=== PATIENT | male | born 1955 | race Caucasian/White ===

== ENCOUNTER → 2018-07-11 | Outpatient (CLI) | payer MEDICARE ==
[2014-11-29 12:05] VITALS: BP 138/53
[~2018-07-11] MED LIST: ALBU2.5V14 NEB; CYCL10TA2 PO; HYDR-3164 PO; METO25TA2 PO; ONDA4TAB12 PO; PANT40TA5 PO; TAMS0.4C2 PO; TRAM50TA PO; VANC1VIA IV; WARF3TAB50 PO
[2018-07-11 11:39] LABS: PROTHROMBIN TIME PATIENT 44.8 SEC (11.7-14.0)
== END | disposition home or self-care (01) ==
LOC: SPEC 11:14
PROVIDERS: ATTEND Family Medicine
DX: I48.91 Unspecified atrial fibrillation (principal)
CPT/HCPCS: 36415; 85610